=== PATIENT | male | born 1950 | race Hispanic/Latino ===

== ENCOUNTER 2018-10-13 16:40 | Inpatient (IN) | payer OTHER ==
[~2018-10-13] VITALS: Ht 167.6 cm; Wt 89.9 kg
[2018-10-13] VITALS (12 sets, daily range): BP systolic 118–185; BP diastolic 64–119
[~2018-10-13 16:40] MED LIST: AMLO10TA7 PO; ASPI-1181 PO; ATOR40TA71 PO; Isosorbide Mononitrate PO; METO-409 PO; TRAM50TA4 PO
[2018-10-13] MEDS ORDERED: NITROGLYCERIN 1GM/1 INCH PACKET TD ONE (16:45)
[2018-10-13] MEDS ORDERED: METOPROLOL TARTRATE 1 MG/ML 5ML VIAL IV ONE ×3 (16:45→17:08)
[2018-10-13] MEDS ORDERED: ASPIRIN 81MG TAB.CHEW ONE (16:46)
[2018-10-13] MEDS ORDERED: HEPARIN SODIUM 5000UNIT/ML 1ML VIAL ONE (16:56)
[2018-10-13 16:57] LABS: EOSINOPHILS % (AUTO) 0.3 % (0.0-8.0); HEMATOCRIT 42.2 % (42-54); LYMPHOCYTES % (AUTO) 15.8 % (21.0-51.0); MEAN CORPUSCULAR HEMOGLOBIN 29.2 pg (27.0-33.0); MEAN CORPUSCULAR HGB CONC 33.6 g/dL (32.0-36.0); MONOCYTES % (AUTO) 6.2 % (3.0-13.0); NEUTROPHILS % (AUTO) 76.7 % (40.0-77.0); PLATELET COUNT (AUTO) 170 K/uL (130-400); RED BLOOD CELL COUNT(AUTO) 4.85 MIL/uL (4.50-6.20); RED CELL DISTRIBUTION WIDTH 14.9 % (11.0-15.5); WHITE BLOOD COUNT (AUTO) 10.8 K/uL (4.8-10.8)
[2018-10-13] MEDS ORDERED: ONDANSETRON HCL 4 MG/2 ML VIAL ONE (17:01)
[2018-10-13] MEDS ORDERED: MORPHINE SULFATE 4 MG/1ML SYG ONE ×3 (17:02→18:33)
[2018-10-13 17:03] LABS: CREATININE 1.4 mg/dL (0.5-1.5); POTASSIUM 4.1 mmol/L (3.5-5.1)
[2018-10-13 17:06] LABS: INR 1.03 (0.85-1.15); PROTHROMBIN TIME 10.8 SEC (9.6-11.6)
[2018-10-13 17:09] LABS: ALBUMIN 3.6 g/dL (3.5-5.0); BILIRUBIN,TOTAL 1.4 mg/dL (0.2-1.0); TOTAL PROTEIN, SERUM 7.8 g/dL (6.0-8.3)
[2018-10-13] MEDS ORDERED: LIDOCAINE HCL 1% 20 ML VIAL ONE (17:15)
[2018-10-13] MEDS ORDERED: IOHEXOL 350 MG/ML 100ML INFUS..BTL IV ONE (17:15)
[2018-10-13] MEDS ORDERED: IOHEXOL-350 50ML VIAL IV ONE (17:15)
[2018-10-13] MEDS ORDERED: BIVALIRUDIN 250 MG/VIAL IV ONE (17:15)
[2018-10-13] MEDS ORDERED: NITROGLYCERIN 5 MG/ML 10 ML VIAL IV ONE (17:16)
[2018-10-13 17:31] LABS: TROPONIN I 17.29 ng/mL (0.00-0.06)
[2018-10-13] MEDS ORDERED: DOPAMINE HCL 400 MG/D5%-WATER 0 ML IV ONE (17:45)
[2018-10-13] MEDS ORDERED: ATROPINE SULFATE 0.1 MG/ML 10 ML SYG IVP ONE (17:45)
[2018-10-13] MEDS ORDERED: HEPARIN SODIUM 1000UNIT/ML 10ML VIAL ONE (17:56)
[2018-10-13] MEDS ORDERED: PRASUGREL HCL 10 MG TABLET ONE (17:57)
[2018-10-13] MEDS ORDERED: EPTIFIBATIDE 2 MG/ML 10 ML VIAL IVP ONE (18:04)
[2018-10-13] MEDS ORDERED: EPTIFIBATIDE 75MG/100ML BOTTLE 100 ML IV ONE (18:06)
[2018-10-13] MEDS ORDERED: LABETALOL HCL 5 MG/ML 20ML VIAL IV ONE (18:57)
[2018-10-13] MEDS ORDERED: SODIUM CHLORIDE 0.9% 1000ML 1,000 ML IV SCH (18:58)
[2018-10-13] MEDS ORDERED: ACETAMINOPHEN 325 MG TAB PO PRN (19:00)
[2018-10-13] MEDS ORDERED: AMLODIPINE BESYLATE 5 MG TAB PO SCH (20:30)
[2018-10-13] MEDS ORDERED: LABETALOL 20 MG/4 ML DISP.SYRIN IV PRN (20:30)
[2018-10-13] MEDS ORDERED: LOSARTAN 50 MG TABLET PO SCH (20:30)
[2018-10-13] MEDS: ATORVASTATIN CALCIUM 40 MG TABLET PO SCH (20:42)
[2018-10-13] MEDS: METOPROLOL TARTRATE 25 MG TAB PO SCH (20:42)
--- NOTE | 2018-10-13 20:50 | NUR ---
Patient admitted to ICU at 193. 2019 Assumed care of patient. Call placed to Dr. Wang to report elevated BP. Orders received. Amlodipine, Losartan, and Lopressor given po. NS infusing at 100 mls/hr into patent IV.
--- NOTE | 2018-10-13 23:20 | NUR ---
Dr Callejas here to see patient. Reviewed chart, spoke with patient and .
[2018-10-13 23:27] LABS: TROPONIN I 185.41 ng/mL (0.00-0.06)
[2018-10-14] VITALS (25 sets, daily range): BP systolic 100–150; BP diastolic 66–97
[2018-10-14] MEDS ORDERED: POTASSIUM CHLORIDE 20 MEQ ERTAB PO PRN (03:00)
[2018-10-14] MEDS ORDERED: POTASSIUM CHLORIDE 10% ELIXIR 20 MEQ/15 ML UDCUP PO PRN (03:00)
[2018-10-14] MEDS ORDERED: MAGNESIUM SULFATE 1 GM in SODIUM CHLORIDE 0.9% 50 ML IV PRN (03:00)
[2018-10-14] MEDS ORDERED: POTASSIUM CHLORIDE 20MEQ/100ML 100 ML IV PRN (03:00)
[2018-10-14] MEDS ORDERED: LIDOCAINE HCL-MPF 1% 2ML VIAL IVP PRN (03:00)
[2018-10-14] MEDS ORDERED: MAGNESIUM 2GM PREMIX 50ML 50 ML IV ONE (03:11)
[2018-10-14 03:18] LABS: HEMATOCRIT 37.7 % (42-54); MEAN CORPUSCULAR HEMOGLOBIN 28.2 pg (27.0-33.0); MEAN CORPUSCULAR HGB CONC 32.7 g/dL (32.0-36.0); MEAN CORPUSCULAR VOLUME 86.3 fL (79-99); PLATELET COUNT (AUTO) 155 K/uL (130-400); RED BLOOD CELL COUNT(AUTO) 4.38 MIL/uL (4.50-6.20); WHITE BLOOD COUNT (AUTO) 12.1 K/uL (4.8-10.8)
--- NOTE | 2018-10-14 03:19 | NUR ---
[address] Ankur Wang. [address] Wang. Reported dysrythmia, approx 12 seconds of wide complex tachycardia, followed by approx 6 seconds of junctional BBB, converting to Sinus , rate 60. Orders received. 0300 BP 150/91. Labetalol given.
[2018-10-14 03:44] LABS: BILIRUBIN,TOTAL 0.8 mg/dL (0.2-1.0); CREATININE 1.2 mg/dL (0.5-1.5); POTASSIUM 4.3 mmol/L (3.5-5.1); TOTAL PROTEIN, SERUM 6.7 g/dL (6.0-8.3)
--- NOTE | 2018-10-14 03:45 | NUR ---
Magnesium level 1.6. Magnesium 2 grams IVPB infusing. Patient c/o right shoulder pain,states feels it is due to his stiffness from having to lay without bending his right leg for the 6 hours ordered. States it hurts his right shoulder only when he lifts his arm. Handgrip strong. 12 lead EKG ordered. Neuro v/s remain stable. Right groin Percose dressing remains clean, dry, and intact. No hematoma. Lower extremities warm and pink. Dorsalis pedis strong. Call light and needed items readily at hand.
[2018-10-14 03:51] LABS: TROPONIN I 180.79 ng/mL (0.00-0.06)
--- NOTE | 2018-10-14 04:24 | NUR ---
Spoke with Dr Wang . Reported right shoulder pain only when lifts right arm, 12 lead EKG results, labs, labetalol given, current vital signs. Patient sleeping now. No new orders.
--- NOTE | 2018-10-14 07:02 | NUR ---
Neuro v/s remain stable. Right groin perclose dressing remains clean, dry, and intact. Site soft. No ecchymosis, no hematoma. Lower extremities warm and pink. Dorsalis pedis pulses strong. States right shoulder where arm meets the shoulder still hurts when he lifts his arm. Warm packs applied earlier. States they help provide relief. Readily falls back asleep. Care of patient endorsed to Yeny VALDES.
[2018-10-14] MEDS: LOSARTAN 50 MG TABLET PO SCH (09:00)
[2018-10-14] MEDS ORDERED: AMLODIPINE BESYLATE 5 MG TAB PO SCH (09:00)
[2018-10-14] MEDS: METOPROLOL TARTRATE 25 MG TAB PO SCH ×2 (09:00→20:14)
[2018-10-14] MEDS: ASPIRIN 325 MG TABLET PO SCH (09:48)
[2018-10-14] MEDS: TICAGRELOR 90 MG TABLET PO SCH ×2 (09:48→20:14)
[2018-10-14] MEDS: ENOXAPARIN SODIUM 40 MG/0.4 ML SYRINGE SQ SCH (09:49)
[2018-10-14] MEDS: PANTOPRAZOLE SODIUM 40 MG TABLET.DR PO SCH (09:52)
--- NOTE | 2018-10-14 14:16 | NUR ---
DC PLAN VISITED WITH PATIENT. PATIENT LIVES WITH SPOUSE AND SON. INDEPENDENT ABLE TO PERFORM ADL'S. PATIENT HAS NO SERVICES OR DME'S. FEELS SAFE TO RETURN HOME. Addendum: 10/14/18 at 1420 by JOHN SAUCEDO RN CM Amended: Links added.
[2018-10-14] MEDS ORDERED: OMEP20CA10 PO (17:51)
[2018-10-14] MEDS ORDERED: METF-444 PO (17:51)
[2018-10-14] MEDS ORDERED: CLON0.2T PO (17:51)
[2018-10-14] MEDS ORDERED: AMLO5TAB9 PO (17:51)
[2018-10-14] MEDS ORDERED: ASPI-555 PO (17:53)
--- NOTE | 2018-10-14 19:10 | NUR ---
ASSUMED CARE RECEIVED BEDSIDE REPORT. PATIENT SITTING IN BEDSIDE CHAIR WITH SEVERAL FAMILY MEMBERS IN ROOM. NO DISTRESS NOTED. APPEARS TO BE IN GOOD SPIRITS. DENIES SHORTNESS OF BREATH AND CHEST PAIN. BEDSIDE MONITORING SINUS RHYTHM HR 60. INSTRUCTED ON PLAN OF CARE. QUESTIONS ANSWERED. INSTRUCTED TO CALL FOR ASSISTANCE.
[2018-10-14] MEDS: ATORVASTATIN CALCIUM 40 MG TABLET PO SCH (20:14)
--- NOTE | 2018-10-14 21:00 | NUR ---
PM MEDS GIVEN SCHEDULED. PATIENT NOW IN BED. SPOUSE AT BEDSIDE. STATED SHE WILL STAY THE NIGHT. INSTRUCTED TO CALL FOR ASSISTANCE. CALL LIGHT WITHIN REACH.
--- NOTE | 2018-10-14 23:17 | NUR ---
RESTING, SLEEPING, AFEBRILE, SINUS RHYTHM HR 63. EASILY AROUSABLE. Addendum: 10/14/18 at 2318 by MAKENZIE TADEO RN RN Amended: Links added.
[2018-10-15] VITALS (16 sets, daily range): BP systolic 119–155; BP diastolic 63–86
[2018-10-15 03:52] LABS: BASOPHILS % (AUTO) 0.7 % (0.0-5.0); EOSINOPHILS % (AUTO) 1.8 % (0.0-8.0); HEMATOCRIT 38.3 % (42-54); LYMPHOCYTES % (AUTO) 20.5 % (21.0-51.0); MEAN CORPUSCULAR HEMOGLOBIN 29.2 pg (27.0-33.0); MEAN CORPUSCULAR HGB CONC 33.7 g/dL (32.0-36.0); MEAN CORPUSCULAR VOLUME 86.5 fL (79-99); MONOCYTES % (AUTO) 10.8 % (3.0-13.0); NEUTROPHILS % (AUTO) 66.2 % (40.0-77.0); PLATELET COUNT (AUTO) 140 K/uL (130-400); RED BLOOD CELL COUNT(AUTO) 4.43 MIL/uL (4.50-6.20); RED CELL DISTRIBUTION WIDTH 14.9 % (11.0-15.5); WHITE BLOOD COUNT (AUTO) 7.3 K/uL (4.8-10.8)
[2018-10-15 04:00] LABS: CREATININE 1.2 mg/dL (0.5-1.5); POTASSIUM 3.9 mmol/L (3.5-5.1)
--- NOTE | 2018-10-15 06:15 | NUR ---
OUT OF BED. AMBULATED TO RESTROOM. STEADY GAIT. VERY INDEPENDENT. REFUSED ASSISTANCE. SPOUSE IN ROOM. Addendum: 10/15/18 at 0616 by MAKENZIE TADEO RN RN Amended: Links added.
[2018-10-15] MEDS: PANTOPRAZOLE SODIUM 40 MG TABLET.DR PO SCH (07:51)
[2018-10-15] MEDS: LOSARTAN 50 MG TABLET PO SCH (08:02)
[2018-10-15] MEDS: ASPIRIN 325 MG TABLET PO SCH (08:02)
[2018-10-15] MEDS: TICAGRELOR 90 MG TABLET PO SCH ×2 (08:02→21:04)
[2018-10-15] MEDS: METOPROLOL TARTRATE 25 MG TAB PO SCH ×2 (08:02→21:04)
[2018-10-15] MEDS: ENOXAPARIN SODIUM 40 MG/0.4 ML SYRINGE SQ SCH (08:03)
[2018-10-15] MEDS: ATORVASTATIN CALCIUM 40 MG TABLET PO SCH (21:04)
[2018-10-16 03:00] VITALS: BP 134/74
[2018-10-16 04:11] LABS: HEMATOCRIT 37.6 % (42-54); MEAN CORPUSCULAR HEMOGLOBIN 28.7 pg (27.0-33.0); MEAN CORPUSCULAR HGB CONC 32.9 g/dL (32.0-36.0); MEAN CORPUSCULAR VOLUME 87.2 fL (79-99); PLATELET COUNT (AUTO) 159 K/uL (130-400); RED BLOOD CELL COUNT(AUTO) 4.32 MIL/uL (4.50-6.20); RED CELL DISTRIBUTION WIDTH 14.5 % (11.0-15.5); WHITE BLOOD COUNT (AUTO) 7.7 K/uL (4.8-10.8)
[2018-10-16 04:18] LABS: CREATININE 1.4 mg/dL (0.5-1.5); POTASSIUM 4.2 mmol/L (3.5-5.1)
[2018-10-16] MEDS: PANTOPRAZOLE SODIUM 40 MG TABLET.DR PO SCH (06:53)
[2018-10-16 07:53] VITALS: BP 139/70
[2018-10-16] MEDS: TICAGRELOR 90 MG TABLET PO SCH (08:58)
[2018-10-16] MEDS: METOPROLOL TARTRATE 25 MG TAB PO SCH (08:58)
[2018-10-16] MEDS: ASPIRIN 325 MG TABLET PO SCH (08:58)
[2018-10-16] MEDS: LOSARTAN 50 MG TABLET PO SCH (08:58)
[2018-10-16] MEDS: ENOXAPARIN SODIUM 40 MG/0.4 ML SYRINGE SQ SCH (09:02)
[2018-10-16 10:48] VITALS: BP 131/72
[2018-10-16] MEDS ORDERED: METO25 PO (11:35)
[2018-10-16] MEDS ORDERED: TICA90TA PO (11:35)
[2018-10-16] MEDS ORDERED: LOSA50TA2 PO (11:35)
[2018-10-16] MEDS ORDERED: ATOR40TA69 PO (11:35)
[2018-10-16] MEDS ORDERED: PANT40TA PO (11:35)
[2018-10-16] MEDS ORDERED: ASPI-555 PO (11:35)
== END 2018-10-16 15:45 | disposition home or self-care (01) | DRG 250 ==
LOC: EDH 16:40 → EDHIP 16:59 → OBSVTOIN 16:59 → 2BH 17:00 → 2CH 10-15 18:00
PROVIDERS: ADMIT Internal Medicine; ATTEND Internal Medicine
PROC: 4A023N7 Measurement of Cardiac Sampling and Pressure, Left Heart, Percutaneous Approach (ICD-10-PCS; principal; 2018-10-13)
PROC: B2151ZZ Fluoroscopy of Left Heart using Low Osmolar Contrast (ICD-10-PCS; 2018-10-13)
PROC: 02703ZZ Dilation of Coronary Artery, One Artery, Percutaneous Approach (ICD-10-PCS; 2018-10-13)
PROC: 02C03ZZ Extirpation of Matter from Coronary Artery, One Artery, Percutaneous Approach (ICD-10-PCS; 2018-10-13)
PROC: B2111ZZ Fluoroscopy of Multiple Coronary Arteries using Low Osmolar Contrast (ICD-10-PCS; 2018-10-13)
PROC: 3E073PZ Introduction of Platelet Inhibitor into Coronary Artery, Percutaneous Approach (ICD-10-PCS; 2018-10-13)
DX: I21.19 ST elevation (STEMI) myocardial infarction involving other coronary artery of inferior wall (principal); I50.31 Acute diastolic (congestive) heart failure; I13.0 Hypertensive heart and chronic kidney disease with heart failure and stage 1 through stage 4 chronic kidney disease, or unspecified chronic kidney disease; I47.2 Ventricular tachycardia; N18.2 Chronic kidney disease, stage 2 (mild); E78.5 Hyperlipidemia, unspecified; F17.200 Nicotine dependence, unspecified, uncomplicated; I25.119 Atherosclerotic heart disease of native coronary artery with unspecified angina pectoris; I25.5 Ischemic cardiomyopathy; Z82.3 Family history of stroke; Z82.49 Family history of ischemic heart disease and other diseases of the circulatory system
CPT/HCPCS: 36415; 71045; 80048; 80053; 80061; 82550; 83735; 83874; 84484; 85025; 85027; 85610; 85730; 92920; 93005; 93306; 93458; 99291; C1725; C1760; C1769; C1887; C1894; G0378; J0461; J0583; J1265; J1327; J1644; J1650; J2270; J2405; J3475; J3490; Q9967

== ENCOUNTER → 2022-07-24 | Outpatient (CLI) | payer OTHER ==
[~2022-07-24] MED LIST changes: -AMLO10TA7 PO; -ASPI-1181 PO; +ASPI-556 PO; +ATOR40TA69 PO; -ATOR40TA71 PO; -Isosorbide Mononitrate PO; +LOSA50TA2 PO; +METF-444 PO; -METO-409 PO; +METO25 PO; +PANT40TA PO; +TICA90TA PO; -TRAM50TA4 PO
[2022-07-24 13:05] LABS: ALBUMIN 3.6 g/dL (3.5-5.0); CREATININE 1.2 mg/dL (0.5-1.5); POTASSIUM 4.2 mmol/L (3.5-5.1); TOTAL PROTEIN, SERUM 7.4 g/dL (6.0-8.3)
== END | disposition home or self-care (01) ==
LOC: LAB 09:21
PROVIDERS: ATTEND Internal Medicine Cardiovascular Disease
DX: I10 Essential (primary) hypertension (principal)
CPT/HCPCS: 36415; 80053

== ENCOUNTER → 2023-08-12 | Outpatient (CLI) | payer OTHER ==
[~2023-08-12] MED LIST changes: +LOSA-418 PO; -LOSA50TA2 PO
[2023-08-12 12:42] LABS: CREATININE 1.2 mg/dL (0.5-1.3); POTASSIUM 4.1 mmol/L (3.5-5.1)
== END | disposition home or self-care (01) ==
LOC: LAB 08:04
PROVIDERS: ATTEND Internal Medicine Cardiovascular Disease
DX: I72.2 Aneurysm of renal artery (principal)
CPT/HCPCS: 36415; 80048

== ENCOUNTER → 2023-09-02 | Outpatient (CLI) | payer OTHER ==
[~2023-09-02] MED LIST changes: +IOHEXOL 350 MG/ML 100ML INFUS..BTL IV ONE
== END | disposition home or self-care (01) ==
LOC: RAH 09:16
PROVIDERS: ATTEND Internal Medicine Cardiovascular Disease
DX: I71.23 Aneurysm of the descending thoracic aorta, without rupture (principal); K44.9 Diaphragmatic hernia without obstruction or gangrene; I51.7 Cardiomegaly
CPT/HCPCS: 71275; Q9967

== ENCOUNTER 2023-11-11 16:03 | Inpatient (IN) | payer OTHER ==
[~2023-11-11] VITALS: Ht 167.6 cm; Wt 89.3 kg
[~2023-11-11 16:03] MED LIST changes: -IOHEXOL 350 MG/ML 100ML INFUS..BTL IV ONE
[2023-11-11 16:33] LABS: BASOPHILS # (AUTO) 0.03 K/uL (0.00-0.20); BASOPHILS % (AUTO) 0.4 % (0.0-5.0); EOSINOPHILS # (AUTO) 0.09 K/uL (0.00-0.70); EOSINOPHILS % (AUTO) 1.3 % (0.0-8.0); IMMATURE GRANULOCYTE ABSOLUTE 0.01 K/uL (0-1); LYMPHOCYTES # (AUTO) 1.4 K/uL (1.0-4.8); LYMPHOCYTES % (AUTO) 19.2 % (21.0-51.0); MEAN CORPUSCULAR HEMOGLOBIN 31.5 pg (27.0-33.0); MEAN CORPUSCULAR HGB CONC 34.3 g/dL (32.0-36.0); MEAN CORPUSCULAR VOLUME 91.9 fL (79-99); MONOCYTES # (AUTO) 0.7 K/uL (0.1-1.0); MONOCYTES % (AUTO) 9.4 % (3.0-13.0); NEUTROPHILS % (AUTO) 69.6 % (40.0-77.0); PLATELET COUNT (AUTO) 140 K/uL (130-400); RED BLOOD CELL COUNT(AUTO) 4.79 MIL/uL (4.50-6.20); RED CELL DISTRIBUTION WIDTH 13.3 % (11.0-15.5); WHITE BLOOD COUNT (AUTO) 7.2 K/uL (4.8-10.8)
[2023-11-11 16:44] LABS: CREATININE 1.3 mg/dL (0.5-1.3); POTASSIUM 3.7 mmol/L (3.5-5.1)
[2023-11-11 16:54] LABS: INR 1.04 (0.85-1.15); PARTIAL THROMBOPLASTIN TIME 26.3 SEC (26.3-35.5)
[2023-11-11 16:57] LABS: B-TYPE NATRIURETIC PEPTIDE 473 pg/mL (0-100)
[2023-11-11 17:47] LABS: APPEARANCE,URINE CLEAR (CLEAR); BILIRUBIN,URINE NEGATIVE (NEGATIVE); COLOR,URINE LIGHT-YELLOW (YELLOW); GLUCOSE, URINE (UA) NEGATIVE (NEGATIVE); KETONES,URINE NEGATIVE (NEGATIVE); LEUKOCYTE ESTERASE ,URINE NEGATIVE Leu/uL (NEGATIVE); NITRATE,URINE NEGATIVE (NEGATIVE); PH,URINE 5.5 (5.0-8.0); PROTEIN,URINE 30 mg/dL (NEGATIVE); UROBILINOGEN,URINE 0.2 mg/dL (0.2-1.0)
[2023-11-11 17:55] LABS: ADD UA MICROSCOPIC YES
[2023-11-11 18:02] LABS: BACTERIA,URINE RARE /HPF (None Seen); RBC,URINE 0-1 /HPF (0-1); SQUAMOUS EPITHELIAL CELL,UR RARE /HPF (0-2); WBC,URINE 0-1 /HPF (0-1)
[2023-11-11] MEDS ORDERED: LABETALOL 20MG SYG IV PRN (22:00)
[2023-11-11] MEDS ORDERED: ALBUTEROL 0.083% 2.5 MG/3 ML INH IH PRN (22:00)
[2023-11-11] MEDS ORDERED: ACETAMINOPHEN 325 MG TAB PO PRN (22:00)
[2023-11-11] MEDS: ATORVASTATIN 40 MG TABLET PO SCH (22:07)
[2023-11-11] MEDS: 0.9%NACL 1000ML 1,000 ML IV SCH (22:07)
[2023-11-11] MEDS: ASPIRIN 81 MG EC TAB PO ONE (22:07)
[2023-11-11] MEDS ORDERED: IOHEXOL-350 75 ML VIAL IV ONE (22:29)
[2023-11-11 23:45] VITALS: O2SAT 99
[2023-11-11 23:58] VITALS: BP 177/88; PULSE 60; RESP 18
[2023-11-12] VITALS (8 sets, daily range): BP systolic 176–196; BP diastolic 81–104; PULSE 57–88; RESP 16–20; O2SAT 93–98
[2023-11-12 04:21] LABS: BASOPHILS # (AUTO) 0.05 K/uL (0.00-0.20); BASOPHILS % (AUTO) 0.8 % (0.0-5.0); EOSINOPHILS # (AUTO) 0.15 K/uL (0.00-0.70); EOSINOPHILS % (AUTO) 2.3 % (0.0-8.0); HEMATOCRIT 41.4 % (42-54); IMMATURE GRANULOCYTE ABSOLUTE 0.01 K/uL (0-1); LYMPHOCYTES # (AUTO) 1.4 K/uL (1.0-4.8); LYMPHOCYTES % (AUTO) 21.2 % (21.0-51.0); MEAN CORPUSCULAR HEMOGLOBIN 31.3 pg (27.0-33.0); MEAN CORPUSCULAR HGB CONC 34.1 g/dL (32.0-36.0); MONOCYTES # (AUTO) 0.6 K/uL (0.1-1.0); MONOCYTES % (AUTO) 8.9 % (3.0-13.0); NEUTROPHILS # (AUTO) 4.3 K/uL (1.8-7.7); NEUTROPHILS % (AUTO) 66.6 % (40.0-77.0); PLATELET COUNT (AUTO) 132 K/uL (130-400); RED CELL DISTRIBUTION WIDTH 13.3 % (11.0-15.5); WHITE BLOOD COUNT (AUTO) 6.5 K/uL (4.8-10.8)
[2023-11-12 04:36] LABS: INR 1.07 (0.85-1.15); PROTHROMBIN TIME 11.3 SEC (9.6-11.6)
[2023-11-12 04:51] LABS: CREATININE 1.1 mg/dL (0.5-1.3); MAGNESIUM 1.9 mg/dL (1.80-2.40); PHOSPHORUS 3.4 mg/dL (2.5-4.9); POTASSIUM 3.6 mmol/L (3.5-5.1); THYROID STIMULATING HORMONE 2.45 uIU/mL (0.36-3.74)
[2023-11-12] MEDS: ASPIRIN 81MG CHEW TAB PO SCH (09:12)
[2023-11-13] VITALS (15 sets, daily range): BP systolic 124–190; BP diastolic 67–91; PULSE 55–68; RESP 16–18; O2SAT 96–97
[2023-11-13 04:19] LABS: BASOPHILS # (AUTO) 0.03 K/uL (0.00-0.20); BASOPHILS % (AUTO) 0.5 % (0.0-5.0); EOSINOPHILS # (AUTO) 0.17 K/uL (0.00-0.70); EOSINOPHILS % (AUTO) 2.9 % (0.0-8.0); HEMATOCRIT 40.5 % (42-54); IMMATURE GRANULOCYTE ABSOLUTE 0.01 K/uL (0-1); LYMPHOCYTES # (AUTO) 1.5 K/uL (1.0-4.8); LYMPHOCYTES % (AUTO) 25.2 % (21.0-51.0); MEAN CORPUSCULAR HEMOGLOBIN 30.8 pg (27.0-33.0); MEAN CORPUSCULAR HGB CONC 33.6 g/dL (32.0-36.0); MEAN CORPUSCULAR VOLUME 91.8 fL (79-99); MONOCYTES # (AUTO) 0.6 K/uL (0.1-1.0); MONOCYTES % (AUTO) 10.5 % (3.0-13.0); NEUTROPHILS # (AUTO) 3.5 K/uL (1.8-7.7); NEUTROPHILS % (AUTO) 60.7 % (40.0-77.0); PLATELET COUNT (AUTO) 140 K/uL (130-400); RED BLOOD CELL COUNT(AUTO) 4.41 MIL/uL (4.50-6.20); RED CELL DISTRIBUTION WIDTH 13.6 % (11.0-15.5); WHITE BLOOD COUNT (AUTO) 5.8 K/uL (4.8-10.8)
[2023-11-13 04:41] LABS: ALBUMIN 3.2 g/dL (3.5-5.0); BILIRUBIN,TOTAL 1.2 mg/dL (0.2-1.0); CREATININE 1.1 mg/dL (0.5-1.3); MAGNESIUM 1.8 mg/dL (1.80-2.40); POTASSIUM 3.8 mmol/L (3.5-5.1); TOTAL PROTEIN, SERUM 6.7 g/dL (6.0-8.3)
[2023-11-13] MEDS: LOSARTAN 25 MG TABLET PO ONE (10:25)
[2023-11-13] MEDS ORDERED: CLOP-31 PO ×2 (10:50→10:59)
[2023-11-13] MEDS ORDERED: FURO20TA4 PO (10:50)
[2023-11-13] MEDS ORDERED: LOSA100T59 PO (10:50)
[2023-11-13] MEDS ORDERED: AMLO-258 PO (11:22)
[2023-11-13] MEDS ORDERED: CARV6.25 PO (11:22)
[2023-11-13] MEDS: LOSARTAN 50 MG TABLET PO ONE (12:32)
[2023-11-13] MEDS: AMLODIPINE 5 MG TAB PO ONE (12:32)
[2023-11-13] MEDS: CARVEDILOL 6.25 MG TABLET PO ONE (12:33)
[2023-11-13] MEDS ORDERED: POTASSIUM CHLORIDE 10% ELIXIR 20 MEQ/15 ML UDCUP PO PRN (13:00)
[2023-11-13] MEDS ORDERED: POTASSIUM CHLORIDE 20MEQ/100ML 100 ML IV PRN (13:00)
[2023-11-13] MEDS: KCL 20 MEQ ERTAB PO PRN (13:37)
[2023-11-13] MEDS: MAGNESIUM 2GM PREMIX 50ML 50 ML IV PRN (13:37)
[2023-11-13] MEDS: HYDRALAZINE 20MG/ML VIAL IV PRN (14:28)
[2023-11-13] MEDS ORDERED: CLONIDINE HCL 0.1 MG TABLET PO PRN (16:30)
[2023-11-13] MEDS: 0.9% NACL 500ML IV.SOLN 500 ML IV SCH (16:50)
[2023-11-13] MEDS: CARVEDILOL 6.25 MG TABLET PO SCH (20:30)
[2023-11-13] MEDS ORDERED: ATORVASTATIN 40 MG TABLET PO SCH (21:00)
[2023-11-14] VITALS (10 sets, daily range): BP systolic 146–173; BP diastolic 72–89; PULSE 58–65; RESP 17–18; O2SAT 95–97
[2023-11-14] MEDS: PANTOPRAZOLE 40 MG TAB DR PO SCH (06:41)
[2023-11-14] MEDS: FUROSEMIDE 20 MG TABLET PO SCH (08:27)
[2023-11-14] MEDS: METFORMIN HCL 500 MG TABLET PO SCH (08:27)
[2023-11-14] MEDS: AMLODIPINE 5 MG TAB PO SCH (08:34)
[2023-11-14] MEDS ORDERED: LOSARTAN 50 MG TABLET PO SCH (09:00)
[2023-11-14] MEDS ORDERED: LOSARTAN 100 MG TABLET PO SCH (09:00)
[2023-11-14] MEDS: LOSARTAN 25 MG TABLET PO SCH (18:00)
[2023-11-15] VITALS (8 sets, daily range): BP systolic 151–181; BP diastolic 68–81; PULSE 51–65; RESP 18; O2SAT 97–98
[2023-11-15 03:56] LABS: BASOPHILS # (AUTO) 0.04 K/uL (0.00-0.20); BASOPHILS % (AUTO) 0.6 % (0.0-5.0); EOSINOPHILS # (AUTO) 0.18 K/uL (0.00-0.70); EOSINOPHILS % (AUTO) 2.6 % (0.0-8.0); HEMATOCRIT 43.2 % (42-54); IMMATURE GRANULOCYTE ABSOLUTE 0.01 K/uL (0-1); LYMPHOCYTES # (AUTO) 1.4 K/uL (1.0-4.8); LYMPHOCYTES % (AUTO) 20.8 % (21.0-51.0); MEAN CORPUSCULAR HEMOGLOBIN 31.6 pg (27.0-33.0); MEAN CORPUSCULAR VOLUME 92.9 fL (79-99); MONOCYTES # (AUTO) 0.8 K/uL (0.1-1.0); MONOCYTES % (AUTO) 11.9 % (3.0-13.0); NEUTROPHILS # (AUTO) 4.4 K/uL (1.8-7.7); PLATELET COUNT (AUTO) 150 K/uL (130-400); RED BLOOD CELL COUNT(AUTO) 4.65 MIL/uL (4.50-6.20); RED CELL DISTRIBUTION WIDTH 13.8 % (11.0-15.5); WHITE BLOOD COUNT (AUTO) 6.9 K/uL (4.8-10.8)
[2023-11-15 04:21] LABS: ALBUMIN 3.3 g/dL (3.5-5.0); BILIRUBIN,TOTAL 0.9 mg/dL (0.2-1.0); CREATININE 1.3 mg/dL (0.5-1.3); POTASSIUM 3.8 mmol/L (3.5-5.1)
[2023-11-16 03:15] VITALS: BP 151/76; PULSE 57; RESP 18
[2023-11-16 07:35] VITALS: BP 151/83; PULSE 60; RESP 20
[2023-11-16] MEDS: LOSARTAN 25 MG TABLET PO SCH (09:01)
[2023-11-16 11:33] VITALS: BP 173/74; PULSE 60; RESP 20
[2023-11-16 11:34] VITALS: BP 121/52; PULSE 63; RESP 18
[2023-11-16 15:50] VITALS: BP 174/75; PULSE 60; RESP 20
[2023-11-16] MEDS ORDERED: LOSA-417 PO (17:06)
[2023-11-16] MEDS ORDERED: PANT40TA PO (17:06)
[2023-11-16] MEDS ORDERED: ASPI-1005 PO (17:06)
== END 2023-11-16 18:26 | disposition home or self-care (01) | DRG 65 ==
LOC: EDH 16:03 → EDHIP 21:47 → OBSVTOIN 21:47 → 2AH 23:56
PROVIDERS: ADMIT Internal Medicine Critical Care Medicine; ATTEND Internal Medicine Critical Care Medicine
DX: I63.411 Cerebral infarction due to embolism of right middle cerebral artery (principal); I13.0 Hypertensive heart and chronic kidney disease with heart failure and stage 1 through stage 4 chronic kidney disease, or unspecified chronic kidney disease; I50.42 Chronic combined systolic (congestive) and diastolic (congestive) heart failure; R53.1 Weakness; I25.10 Atherosclerotic heart disease of native coronary artery without angina pectoris; I71.23 Aneurysm of the descending thoracic aorta, without rupture; N18.2 Chronic kidney disease, stage 2 (mild); K25.9 Gastric ulcer, unspecified as acute or chronic, without hemorrhage or perforation; E78.5 Hyperlipidemia, unspecified; R29.701 NIHSS score 1; E11.22 Type 2 diabetes mellitus with diabetic chronic kidney disease; Z79.82 Long term (current) use of aspirin; Z79.899 Other long term (current) drug therapy; Z87.11 Personal history of peptic ulcer disease; I16.0 Hypertensive urgency; I25.2 Old myocardial infarction; Z79.02 Long term (current) use of antithrombotics/antiplatelets; Z79.84 Long term (current) use of oral hypoglycemic drugs; Z95.5 Presence of coronary angioplasty implant and graft
CPT/HCPCS: 36415; 70450; 70496; 70498; 70551; 71045; 80048; 80053; 80061; 81001; 82550; 82948; 83036; 83721; 83735; 83880; 84100; 84443; 84484; 85025; 85610; 85730; 92522; 92610; 93005; 93306; 93356; 93880; 96360; G0378; J0360; J7030; Q9967; A4216